=== PATIENT | male | born 1985 | race African-American/Black ===

== ENCOUNTER 2023-05-20 18:25 | Emergency (ER) | payer OTHER ==
[~2023-05-20] VITALS: Ht 172.7 cm; Wt 69.1 kg
[2023-05-20 19:27] VITALS: TEMP 99.3
[2023-05-20] MEDS ORDERED: SODIUM CHLORIDE 0.9% 1,000 ML IV ONE (19:45)
[2023-05-20] MEDS ORDERED: DEXAMETHASONE SOD PHOS 4 MG/ML 5 ML VIAL IVP ONE (19:45)
[2023-05-20] MEDS ORDERED: KETOROLAC TROMETHAMINE 30 MG/ML VIAL IVP ONE (19:45)
[2023-05-20 20:41] LABS: INFLUENZA TYPE A NEGATIVE FOR TYPE A (NEGATIVE); INFLUENZA TYPE B NEGATIVE FOR TYPE B (NEGATIVE)
[2023-05-20 20:47] LABS: RAPID GROUP A STREP NEGATIVE (NEGATIVE)
[2023-05-20 21:30] VITALS: BP 127/67; PULSE 73; RESP 17
== END 2023-05-20 22:00 | disposition home or self-care (01) ==
LOC: EMS 18:27
DX: J02.8 Acute pharyngitis due to other specified organisms (principal); B97.89 Other viral agents as the cause of diseases classified elsewhere
CPT/HCPCS: 99284; 96374; 96361; 96375; 87430; 87804; J1100; J1885; J7030